=== PATIENT | female | born 1960 | race Two or more races ===

== ENCOUNTER 2021-03-30 19:40 | Emergency (ER) | payer OTHER ==
[~2021-03-30] VITALS: Ht 170.2 cm; Wt 70.0 kg
--- NOTE | 2021-03-30 20:00 | NUR ---
BIBA. PT RECEIVED COVID VACCINE THURSDAY AND GOT THE CHILLS AFTER. THURSDAY PT BEGAN TO HAVE A HEADACHE, DIZZYNESS, AND HER HTN FLARED UP IN THE 'S THURSDAY PT HAVE BEGAN TO VOMIT, HAVE PAIN IN LOWER ABDOMEN, AND BELCHING. SYMPTOMS HAVE STARTED TO GET WORSE SO PT WENT TO UC AND SENT PT TO ED. ATTACHED TO CARDIAC/SP02/ AND BP MONITORS. PT IN NAD. BREATHING EVEN AND UNLABORED.
--- NOTE | 2021-03-30 20:05 | NUR ---
PT DENIES SOB AND CP.
[2021-03-30] MEDS ORDERED: ONDANSETRON ODT 4 MG ONE (20:15)
[2021-03-30] MEDS ORDERED: MAALOX/HYOSCYAMINE/LIDOCAINE 45 ML BTL ONE (20:15)
[2021-03-30] MEDS ORDERED: MAALOX/HYOSCYAMINE/LIDOCAINE 45 ML BTL PO ONE (20:30)
[2021-03-30] MEDS ORDERED: ONDANSETRON ODT 4 MG PO ONE (20:30)
[2021-03-30 20:34] LABS: BASOPHILS % (AUTO) 1 % (0-1); EOSINOPHILS % (AUTO) 6 % (1-7); LYMPHOCYTES % (AUTO) 31 % (22-44); MEAN CORPUSCULAR HEMOGLOBIN 29.1 pg (27.0-34.8); MEAN CORPUSCULAR HGB CONC 34.2 g/dL (32.4-35.8); MEAN PLATELET VOLUME 7.1 fL (7.4-10.4); MONOCYTES % (AUTO) 19 % (2-9); NEUTROPHILS % (AUTO) 44 % (42-75); PLATELET COUNT 303 x10^3/uL (130-400); RED BLOOD COUNT 4.94 x10^6/uL (3.82-5.3); RED CELL DISTRIBUTION WIDTH 13.9 % (9.6-15.2)
[2021-03-30 20:39] LABS: ALANINE AMINOTRANSFERASE 29 U/L (12-78); ALBUMIN 3.6 g/dL (3.4-5.0); ANION GAP 6 mmol/L (5-15); CALCIUM 8.9 mg/dL (8.5-10.1); CHLORIDE 102 mmol/L (98-107); CREATININE 1.49 mg/dL (0.55-1.02)
[2021-03-30] MEDS ORDERED: AZAT50TA9 PO (20:40)
[2021-03-30] MEDS ORDERED: OMEP-110 PO (20:40)
[2021-03-30] MEDS ORDERED: HYDR200T5 PO (20:40)
[2021-03-30] MEDS ORDERED: HYDR25TA6 PO (20:40)
[2021-03-30] MEDS ORDERED: ZOLP5TAB6 PO (20:40)
[2021-03-30 20:42] LABS: MD NO
[2021-03-30 20:44] LABS: ALKALINE PHOSPHATASE 87 U/L (45-117); BILIRUBIN,TOTAL 0.3 mg/dL (0.2-1.0); TOTAL PROTEIN 8.1 g/dL (6.4-8.2); TROPONIN I < 0.015 ng/mL (0.000-0.045)
[2021-03-30] MEDS ORDERED: SODIUM CHLORIDE 0.9% 1,000ML IVBOLUS ONE (21:00)
[2021-03-30] MEDS ORDERED: SODIUM CHLORIDE FLUSH 10ML SYR IVF ONE (21:00)
[2021-03-30] MEDS ORDERED: OMNIPAQUE 350 MG/ML, 100ML BOTTLE ONE (21:08)
--- NOTE | 2021-03-30 21:46 | NUR ---
PT OFF UNIT IN IMAGING.
--- NOTE | 2021-03-30 22:06 | NUR ---
PT BACK FROM CT. PT IN NAD. ATTACHED TO MONITORS. VSS.
--- NOTE | 2021-03-30 22:34 | NUR ---
PT AMBULATED DOWN HALLWAY. FELT DIZZY AND UNSTEADY. BELCHING CONTINUES TO OCCUR A FEW TIMES EVERY MINUTE. PT AMBULATED APPROXIMATELY 50 FT.
[2021-03-30 22:49] VITALS: BP 145/84
== END 2021-03-30 22:53 | disposition home or self-care (01) ==
LOC: ED 22:35
DX: K29.50 Unspecified chronic gastritis without bleeding (principal); R11.2 Nausea with vomiting, unspecified; E86.0 Dehydration; R10.9 Unspecified abdominal pain; I10 Essential (primary) hypertension; K21.9 Gastro-esophageal reflux disease without esophagitis; Z90.49 Acquired absence of other specified parts of digestive tract
CPT/HCPCS: 36415; 71045; 74177; 80053; 83690; 84484; 85025; 93005; 99285; J7030; Q0162; Q9967